=== PATIENT | female | born 1990 | race Caucasian/White ===

== ENCOUNTER 2017-05-25 09:57 | Inpatient (IN) | payer OTHER ==
[2017-05-25] MEDS ORDERED: fentaNYL 100 MCG/2 ML SDV IVPUSH PRN (11:20)
[2017-05-25] MEDS ORDERED: Ondansetron 4 MG Tab.DIS PO PRN (11:20)
[2017-05-25] MEDS ORDERED: Sodium Chloride 0.9% 10 ML Syringe FLUSH PRN (11:20)
--- NOTE | 2017-05-25 11:33 | PCM.LDHP ---
L&D History of Present Illness - General Date of Service: 05/25/17 Admit Problem/Dx: Patient Status Order with Admit Dx/Problem 05/25/17 11:21 Patient Status [ADT] Routine Admission Diagnosis/Problem Admission Diagnosis/Problem - planned Source of Information: Patient History Limitations: Reports: No Limitations - History of Present Illness Introduction:: This 27 year old G1 who is 40 4/7 weeks gestation presented with SROM at 0830 this morning. Clear fluid, was having contractions before rupture, now more regular. adequate care. GBS neg, Rubella immune, Hep b and HIV NR, ABO O pos. Positive Amnisure test here. Nursing CE 60/-2, leaking fluid Timing/Duration: Reports: minutes: (3) Location, : Reports: Abdomen, Lower back Quality: Reports: Ache Severity: Mild Improves with: Reports: None Worsens with: Reports: None - Related Data Allergies/Adverse Reactions: Allergies Allergy/AdvReac Type Severity Reaction Status Date / Time doxycycline Allergy Severe Anaphylactic Verified 12/15/14 15:48 Shock Home Medications: Home Meds Cholecalciferol (Vitamin D3) [Vitamin D] 2,000 unit PO DAILY 11/23/14 [History] Metoclopramide HCl [Reglan] 10 mg PO QIDACANDBED 12/15/14 [History] amLODIPine Besylate [Norvasc] 2.5 mg PO DAILY 12/15/14 [History] Past Medical History Other Cardiovascular History: Raynaud's disease Gastrointestinal History: Reports: Inflammatory Bowel Disease SHELVER History: Reports: : 1 Para: 0 LMP (Approximate): (05/21/17) Hematologic History: Reports: Other (See Below) Other Hematologic History: Raynaud's disease Dermatologic History: Reports: Urticaria, Other (See Below) Other Dermatologic History: acne; Raynaud's disease - Past Surgical History GI Surgical History: Reports: Appendectomy, Cholecystectomy, Hernia Repair/Other Social & Family History - Tobacco Use Smoking Status *Q: Never Smoker Second Hand Smoke Exposure: No - Caffeine Use Caffeine Use: Reports: None - Alcohol Use Days Per Week of Alcohol Use: 0 Number of Drinks Per Day: 2 Total Drinks Per Week: 0 - Recreational Drug Use Recreational Drug Use: No H&P Review of Systems - Review of Systems: Review Of Systems: See Below General: Reports: No Symptoms HEENT: Reports: No Symptoms Pulmonary: Reports: No Symptoms Cardiovascular: Reports: No Symptoms Gastrointestinal: Reports: No Symptoms Genitourinary: Reports: No Symptoms Musculoskeletal: Reports: No Symptoms Skin: Reports: No Symptoms Psychiatric: Reports: No Symptoms Neurological: Reports: No Symptoms Hematologic/Lymphatic: Reports: No Symptoms Immunologic: Reports: No Symptoms L&D Exam - Exam Exam: See Below - Vital Signs Vital Signs: Last Vital Signs Temp 98.5 F 05/25/17 11:05 Pulse 97 05/25/17 11:05 Resp 18 05/25/17 11:05 BP 86/53 L 05/25/17 11:05 Pulse Ox 97 05/25/17 11:05 Weight: 190 lb - OB Specific Contraction Duration (sec): 50 Contraction Frequency (min): 3-4 Contraction Intensity: Mild Movement: Active Heart Tones: Present Heart Tones per Min: 155 Heart Rate (FHR) Variability: Moderate (6-25 bmp) Presentation: Vertex Estimated Weight: 8 pounds - Paul Score Paul Score Consistency: Medium Paul Score Effacement: 51-70% Paul Score Dilation: 3-4 cm Paul Score 's Station: -2 - Exam General: Alert, Oriented HEENT: PERRLA, Conjunctiva Clear, EACs Clear, EOMI, Hearing Intact, Mucosa Moist & [place], Nares Patent, Normal Nasal Septum, Posterior Pharynx Clear, Pupils Equal, Pupils Reactive, TMs Clear Neck: Supple, Trachea Midline Lungs: Clear to Auscultation, Normal Respiratory Effort Cardiovascular: Regular Rate, Regular Rhythm GI/Abdominal Exam: Normal Bowel Sounds, Soft, Non-Tender, No Organomegaly, No Distention, No Abnormal Bruit, No Mass, Pelvis Stable Rectal Exam: Normal Exam Genitourinary: Normal external exam, Cervical dilitation Back Exam: Normal Inspection Extremities: Normal Inspection, Normal Range of Motion, Non-Tender, No Pedal Edema, Normal Capillary Refill Skin: Warm Neurological: Cranial Nerves Intact Psychiatric: Alert, Normal Affect, Normal Mood - Patient Data Lab Results Last 24 hrs: Laboratory Results - last 24 hr 05/25/17 Range/Units 10:04 Membrane Rupture Positive H (NEGATIVE) - Problem List (1) SROM (spontaneous rupture of membranes) SNOMED Code(s): 909379277 ICD Code: [id number] - Status: Acute Current Visit: Yes (2) SNOMED Code(s): 25258090 ICD Code: Z34.90 - ENCNTR FOR SUPRVSN OF NORMAL , UNSP, UNSP TRIMESTER Status: Acute Current Visit: Yes Qualifiers: Weeks of gestation: 40 weeks Qualified Code(s): Z3A.40 - 40 weeks gestation of Problem List Initiated/Reviewed/Updated: Yes Orders Last 24hrs: Active Orders 24 hr Category Date Time Status Patient Status [ADT] Routine ADT 05/25/17 11:21 Ordered Antiembolic Devices [RC] .Routine Care 05/25/17 11:23 Ordered Bedrest Bathroom Privileges [RC] ASDIRECTED Care 05/25/17 11:20 Ordered Communication Order [RC] ASDIRECTED Care 05/25/17 11:21 Ordered Heart Tones [RC] PER UNIT ROUTINE Care 05/25/17 11:21 Ordered May Shower [RC] ASDIRECTED Care 05/25/17 11:20 Ordered Notify Provider Vital Signs [RC] PRN Care 05/25/17 11:20 Ordered Notify Provider [RC] PRN Care 05/25/17 11:21 Ordered Up ad Shiela [RC] ASDIRECTED Care 05/25/17 11:20 Ordered VTE/DVT Education [RC] Click to Edit Care 05/25/17 11:23 Ordered Vital Signs [RC] PER UNIT ROUTINE Care 05/25/17 11:21 Ordered CBC W/O DIFF,HEMOGRAM [HEME] Routine Lab 05/25/17 11:20 Ordered DRUG SCREEN, URINE [URCHEM] Routine Lab 05/25/17 10:04 Ordered UA W/MICROSCOPIC [URIN] Routine Lab 05/25/17 10:05 Ordered Acetaminophen [Tylenol] Med 05/25/17 11:20 Ordered 650 mg PO Q4H PRN Ondansetron [Zofran ODT] Med 05/25/17 11:20 Ordered 4 mg PO Q4H PRN Oxytocin/Normal Saline [Pitocin in NS 20 Units/1,000 ML Med 05/25/17 11:30 Ordered ] 1,000 ml IV TITRATE Sodium Chloride 0.9% [Saline Flush] Med 05/25/17 11:20 Ordered 10 ml FLUSH ASDIRECTED PRN fentaNYL [Sublimaze] Med 05/25/17 11:20 Ordered 100 mcg IVPUSH Q1H PRN DVT/VTE Prophylaxis Reflex [OM.PC] Routine Oth 05/25/17 11:20 Ordered Saline Lock Insert [OM.PC] Routine Oth 05/25/17 11:21 Ordered Resuscitation Status Routine Resus Stat 05/25/17 11:20 Ordered Medication Orders Acetaminophen (Tylenol) 650 mg PO Q4H PRN PRN Reason: Pain (Mild 1-3) and fever Fentanyl (Sublimaze) 100 mcg IVPUSH Q1H PRN PRN Reason: Pain (moderate 4-6) Oxytocin/Sodium Chloride (Pitocin In Ns 20 Units/1,000 Ml) 1,000 mls @ 6 mls/ hr IV TITRATE BHUPENDRA; 2 MUNITS/MIN PRN Reason: Protocol Ondansetron HCl (Zofran Odt) 4 mg PO Q4H PRN PRN Reason: Nausea/Vomiting Sodium Chloride (Saline Flush) 10 ml FLUSH ASDIRECTED PRN PRN Reason: Keep Vein Open Assessment/Plan Comment:: 05/25/17 40 4/7 weeks gestation g1 SROM at home Baseline FHT 155 Cat one strip CE 60/-2, leaking Not uncomfortable yet, wants to walk, and be in tub for now. Plan for vaginal delivery later.
[2017-05-25] MEDS: Lactated Ringers 1,000 ML IV SCH ×2 (15:27→17:13)
--- NOTE | 2017-05-25 16:43 | PCM.PNLD ---
Labor Progress Note - VS & Meds Vital Signs: Last Vital Signs Temp 97.9 F 05/25/17 14:35 Pulse 91 05/25/17 14:35 Resp 18 05/25/17 14:35 BP 102/80 05/25/17 14:35 Pulse Ox 98 05/25/17 14:35 Active Medications: Current Medications Acetaminophen (Tylenol) 650 mg PO Q4H PRN PRN Reason: Pain (Mild 1-3) and fever Fentanyl (Sublimaze) 100 mcg IVPUSH Q1H PRN PRN Reason: Pain (moderate 4-6) Oxytocin/Sodium Chloride (Pitocin In Ns 20 Units/1,000 Ml) 20 unit in 1,000 mls @ 6 mls/hr IV TITRATE BHUPENDRA; 2 MUNITS/MIN PRN Reason: Protocol Last Titration: 05/25/17 16:10 Dose: 6 munits/min, 18 mls/hr Lactated Ringer's (Ringers, Lactated) 1,000 mls @ 125 mls/hr IV ASDIRECTED BHUPENDRA Last Admin: 05/25/17 15:27 Dose: 125 mls/hr Ondansetron HCl (Zofran Odt) 4 mg PO Q4H PRN PRN Reason: Nausea/Vomiting Sodium Chloride (Saline Flush) 10 ml FLUSH ASDIRECTED PRN PRN Reason: Keep Vein Open - Uterine Contractions Uterine Monitoring Mode: External [place] Contraction Frequency (min): 2-5 Contraction Duration (sec): 40-80 Contraction Intensity: Moderate Uterine Resting Tone: Soft - Monitoring Monitor Mode: Doppler/Auscultation Heart Rate (FHR) Baseline: 155 Heart Rate (FHR) Variability: Moderate (6-25 bmp) - Vaginal Exam Dilation (cm): 4 Effacement (Percent): 60 Station: [place] Cervical Position: Posterior Sterile Vaginal Exam Performed By: Tamela Lugo - Labor Progress (Free Text) Labor Progress: Augmented with pitocin as contractions were not causing cervical change. Now more uncomfortable and requesting an epidural for pain management. Planning vaginal delivery
[2017-05-25] MEDS ORDERED: ePHEDrine 50 MG/ML SDV ONE (17:22)
[2017-05-25] MEDS ORDERED: Ropivacaine 100 ML ONE (17:36)
[2017-05-25] MEDS ORDERED: ePHEDrine 50 MG/ML SDV IVPUSH PRN (18:06)
[2017-05-25] MEDS ORDERED: Naloxone 0.4 MG/ML SDV IVPUSH PRN (18:06)
[2017-05-25] MEDS ORDERED: Ropivacaine 100 ML EPIDUR SCH (18:30)
[2017-05-25] MEDS ORDERED: Lidocaine 1% 50 ML MDV ONE (18:46)
[2017-05-25] MEDS ORDERED: Oxytocin 10 Units/1 ML SDV ONE (18:46)
--- NOTE | 2017-05-25 18:56 | PCM.PNLD ---
Labor Progress Note - VS & Meds Vital Signs: Last Vital Signs Temp 97.7 F 05/25/17 17:34 Pulse 99 05/25/17 18:10 Resp 18 05/25/17 17:34 BP 108/50 L 05/25/17 18:10 Pulse Ox 99 05/25/17 17:34 Active Medications: Current Medications Acetaminophen (Tylenol) 650 mg PO Q4H PRN PRN Reason: Pain (Mild 1-3) and fever Ephedrine Sulfate (Ephedrine Sulfate) 5 - 10 mg IVPUSH ASDIRECTED PRN PRN Reason: IF SYSTOLIC BP LESS THAN 100 Fentanyl (Sublimaze) 100 mcg IVPUSH Q1H PRN PRN Reason: Pain (moderate 4-6) Oxytocin/Sodium Chloride (Pitocin In Ns 20 Units/1,000 Ml) 20 unit in 1,000 mls @ 6 mls/hr IV TITRATE BHUPENDRA; 2 MUNITS/MIN PRN Reason: Protocol Last Titration: 05/25/17 16:10 Dose: 6 munits/min, 18 mls/hr Lactated Ringer's (Ringers, Lactated) 1,000 mls @ 125 mls/hr IV ASDIRECTED BHUPENDRA Last Admin: 05/25/17 17:13 Dose: 125 mls/hr Ropivacaine (Naropin 0.2%) 100 mls @ 12 mls/hr EPIDUR ASDIRECTED BHUPENDRA Naloxone HCl (Narcan) 0.1 mg IVPUSH Q5M PRN PRN Reason: IF RESP RATE LESS THAN 6 Ondansetron HCl (Zofran Odt) 4 mg PO Q4H PRN PRN Reason: Nausea/Vomiting Last Admin: 05/25/17 17:12 Dose: 4 mg Sodium Chloride (Saline Flush) 10 ml FLUSH ASDIRECTED PRN PRN Reason: Keep Vein Open Discontinued Medications Ephedrine Sulfate (Ephedrine Sulfate) Confirm Administered Dose 50 mg .ROUTE .STK-MED ONE Stop: 05/25/17 17:23 Ropivacaine (Naropin 0.2%) Confirm Administered Dose 100 mls @ as directed .ROUTE .STK-MED ONE Stop: 05/25/17 17:37 Lidocaine HCl (Xylocaine 1%) Confirm Administered Dose 100 ml .ROUTE .STK-MED ONE Stop: 05/25/17 18:47 Oxytocin (Pitocin) Confirm Administered Dose 10 unit .ROUTE .STK-MED ONE Stop: 05/25/17 18:47 - Uterine Contractions Uterine Monitoring Mode: External [place] Contraction Frequency (min): 1.5-4 Contraction Duration (sec): 50-60 Contraction Intensity: Strong Uterine Resting Tone: Soft - Monitoring Monitor Mode: Doppler/Auscultation Heart Rate (FHR) Baseline: 155 Heart Rate (FHR) Variability: Moderate (6-25 bmp) Accelerations: Present, 15x15 Decelerations: Early Strip Review: Category I - Vaginal Exam Dilation (cm): 9.5 Effacement (Percent): 100 Station: 2 Cervical Position: Anterior Sterile Vaginal Exam Performed By: Saundra Valdez - Labor Progress (Free Text) Labor Progress: Excellent progression, anterior lip. FHT 155 Cat one strip. Will start pushing soon. epidural working well
[2017-05-25] MEDS ORDERED: Lanolin 100% Cream 40 GM Tube TOP PRN (20:32)
[2017-05-25] MEDS ORDERED: Witch Hazel Medicated Pads 100/Jar TOP PRN (20:32)
[2017-05-25] MEDS ORDERED: Benzocaine 20% Top Spray 56 GM Bottle TOP PRN (20:32)
[2017-05-25] MEDS ORDERED: Ibuprofen 600 MG Tab ONE (20:37)
[2017-05-25] MEDS: Ibuprofen 600 MG Tab PO PRN (20:40)
--- NOTE | 2017-05-25 20:42 | PCM.DEL ---
L & D Note - General Info Date of Service: 05/25/17 (delivery) Mother's Due Date: 05/21/17 - Delivery Note Labor: Spontaneous Delivery Outcome: Livebirth Infant Delivery Method: Spontaneous Vaginal Delivery-Single Infant Delivery Mode: Spontaneous Presentation: Vertex Nuchal Cord: None Anesthesia Type: Epidural Amniotic Fluid Description: Clear Episiotomy Type: None Laceration: 1st Degree, 2nd Degree, Labial, Perineal Suture type: Vicryl Suture size: 3-0 Placenta: Intact, Spontaneous, Expressed Cord: 3 Vessels Estimated Blood Loss: 400 Resuscitation Needed: No [place]: Stimulated, Warmed, [place] Used Provider: Saundra Valdez Score 1 min: 8 Score 5 min: 9 Score 10 min: 10 Second Stage Interventions: Reports: Second Nurse Reviewed Contraction Pattern, Encouragement Given, Pushing Effectively, Pushing, McRobert's Position Delivery Comments (Free Text/Narrative):: This 27 year old G1 now P1 40 4/7 weeks gestation delivered via at 1940 in SARWAT position a viable female infant. Mother pushed effectively and baby was placed on abdomen were she cried spontaneously. She was dried and stimulated had a three vessel cord. Apgars of 8,9,10. . The placenta was expressed spontaneously intact, adama. active management of the third stage was used. There was a first degree right labia tear which was repaired. with 3-0 vicryl with a running stitch. She also had a second degree perineal tear which was repaired first with a locking blanket stitch, then a few deeps and finally closed with interrupted stitches. Hemostasis was achieved. No cervical tears or tears of the rectum were found. EBL 400cc Mother and baby to post and nursery in stable condition. weight 7-7 First stage 9751-5649 Second stage 4872-2081 third stage 1499-4302 Induction Criteria - Paul Score Paul Score Dilation: 3-4 cm Paul Score Effacement: 60-70% Paul Score Infant's Station: -1 ,0 Paul Score Consistency: Soft Paul Score Cervix Position: Posterior Paul Score Total: 8 Paul Score Presenting Part: Reports: Cephalic - Augmentation Estimated Pelvis: Reports: Adequate Weight Estimated:: Reports: AGA Reassuring Monitoring Strip: Yes Absence of Tachy Systole: Yes - General Info Date of Service: 05/25/17 Admission Dx/Problem (Free Text): Patient Status Order with Admit Dx/Problem 05/25/17 11:21 Patient Status [ADT] Routine Admission Diagnosis/Problem Admission Diagnosis/Problem - planned Functional Status: Reports: Pain Controlled - Review of Systems General: Reports: No Symptoms HEENT: Reports: No Symptoms Pulmonary: Reports: No Symptoms Cardiovascular: Reports: No Symptoms Gastrointestinal: Reports: No Symptoms Genitourinary: Reports: No Symptoms Musculoskeletal: Reports: No Symptoms Skin: Reports: No Symptoms Neurological: Reports: No Symptoms Psychiatric: Reports: No Symptoms - Patient Data Vitals - Most Recent: Last Vital Signs Temp 97.7 F 05/25/17 17:34 Pulse 99 05/25/17 18:10 Resp 18 05/25/17 17:34 BP 108/50 L 05/25/17 18:10 Pulse Ox 99 05/25/17 17:34 Weight - Most Recent: 190 lb Lab Results Last 24 Hours: Laboratory Results - last 24 hr 05/25/17 05/25/17 05/25/17 Range/Units 10:04 10:05 10:05 WBC (4.5-11.0) K/uL RBC (3.30-5.50) M/uL Hgb (12.0-15.0) g/dL Hct (36.0-48.0) % MCV (80-98) fL MCH (27-31) pg MCHC (32-36) % Plt Count (150-400) K/uL Urine Color Yellow Urine Appearance Cloudy Urine pH 7.0 (4.5-8.0) Ur Specific [place] 1.005 L (1.008-1.030) Urine Protein Negative (NEGATIVE) mg/dL Urine Glucose (UA) Normal (NEGATIVE) mg/dL Urine Ketones Negative (NEGATIVE) mg/dL Urine Occult Blood Large (NEGATIVE) Urine Nitrite Negative (NEGATIVE) Urine Bilirubin Negative (NEGATIVE) Urine Urobilinogen Normal (NORMAL) mg/dL Ur Leukocyte Esterase Large (NEGATIVE) Urine RBC 75-100 H (0-5) Urine WBC 75-100 H (0-5) Ur Epithelial Cells Moderate Amorphous Sediment Few Urine Bacteria Few Urine Mucus Numerous Membrane Rupture Positive H (NEGATIVE) Urine Opiates Screen Negative (NEGATIVE) Ur Oxycodone Screen Negative (NEGATIVE) Urine Methadone Screen Negative (NEGATIVE) Ur Propoxyphene Screen Negative (NEGATIVE) Ur Barbiturates Screen Negative (NEGATIVE) Ur Tricyclics Screen Negative (NEGATIVE) Ur Phencyclidine Scrn Negative (NEGATIVE) Ur Amphetamine Screen Negative (NEGATIVE) U Methamphetamines Scrn Negative (NEGATIVE) Urine MDMA Screen Negative (NEGATIVE) U Benzodiazepines Scrn Negative (NEGATIVE) U Cocaine Metab Screen Negative (NEGATIVE) U Marijuana (THC) Screen Negative (NEGATIVE) 05/25/17 Range/Units 11:37 WBC 17.4 H (4.5-11.0) K/uL RBC 3.88 (3.30-5.50) M/uL Hgb 11.1 L (12.0-15.0) g/dL Hct 34.8 L (36.0-48.0) % MCV 90 (80-98) fL MCH 29 (27-31) pg MCHC 32 (32-36) % Plt Count 354 (150-400) K/uL Urine Color Urine Appearance Urine pH (4.5-8.0) Ur Specific [place] (1.008-1.030) Urine Protein (NEGATIVE) mg/dL Urine Glucose (UA) (NEGATIVE) mg/dL Urine Ketones (NEGATIVE) mg/dL Urine Occult Blood (NEGATIVE) Urine Nitrite (NEGATIVE) Urine Bilirubin (NEGATIVE) Urine Urobilinogen (NORMAL) mg/dL Ur Leukocyte Esterase (NEGATIVE) Urine RBC (0-5) Urine WBC (0-5) Ur Epithelial Cells Amorphous Sediment Urine Bacteria Urine Mucus Membrane Rupture (NEGATIVE) Urine Opiates Screen (NEGATIVE) Ur Oxycodone Screen (NEGATIVE) Urine Methadone Screen (NEGATIVE) Ur Propoxyphene Screen (NEGATIVE) Ur Barbiturates Screen (NEGATIVE) Ur Tricyclics Screen (NEGATIVE) Ur Phencyclidine Scrn (NEGATIVE) Ur Amphetamine Screen (NEGATIVE) U Methamphetamines Scrn (NEGATIVE) Urine MDMA Screen (NEGATIVE) U Benzodiazepines Scrn (NEGATIVE) U Cocaine Metab Screen (NEGATIVE) U Marijuana (THC) Screen (NEGATIVE) Med Orders - Current: Current Medications Acetaminophen (Tylenol) 650 mg PO Q4H PRN PRN Reason: Pain (Mild 1-3) and fever Ephedrine Sulfate (Ephedrine Sulfate) 5 - 10 mg IVPUSH ASDIRECTED PRN PRN Reason: IF SYSTOLIC BP LESS THAN 100 Fentanyl (Sublimaze) 100 mcg IVPUSH Q1H PRN PRN Reason: Pain (moderate 4-6) Oxytocin/Sodium Chloride (Pitocin In Ns 20 Units/1,000 Ml) 20 unit in 1,000 mls @ 6 mls/hr IV TITRATE BHUPENDRA; 2 MUNITS/MIN PRN Reason: Protocol Last Titration: 05/25/17 16:10 Dose: 6 munits/min, 18 mls/hr Lactated Ringer's (Ringers, Lactated) 1,000 mls @ 125 mls/hr IV ASDIRECTED BHUPENDRA Last Admin: 05/25/17 17:13 Dose: 125 mls/hr Ropivacaine (Naropin 0.2%) 100 mls @ 12 mls/hr EPIDUR ASDIRECTED BHUPENDRA Naloxone HCl (Narcan) 0.1 mg IVPUSH Q5M PRN PRN Reason: IF RESP RATE LESS THAN 6 Ondansetron HCl (Zofran Odt) 4 mg PO Q4H PRN PRN Reason: Nausea/Vomiting Last Admin: 05/25/17 17:12 Dose: 4 mg Sodium Chloride (Saline Flush) 10 ml FLUSH ASDIRECTED PRN PRN Reason: Keep Vein Open Discontinued Medications Ephedrine Sulfate (Ephedrine Sulfate) Confirm Administered Dose 50 mg .ROUTE .STK-MED ONE Stop: 05/25/17 17:23 Ropivacaine (Naropin 0.2%) Confirm Administered Dose 100 mls @ as directed .ROUTE .STK-MED ONE Stop: 05/25/17 17:37 Lidocaine HCl (Xylocaine 1%) Confirm Administered Dose 100 ml .ROUTE .STK-MED ONE Stop: 05/25/17 18:47 Oxytocin (Pitocin) Confirm Administered Dose 10 unit .ROUTE .STK-MED ONE Stop: 05/25/17 18:47 - Exam General: Alert, Oriented HEENT: Pupils Equal Neck: Supple Lungs: Clear to Auscultation Cardiovascular: Regular Rate, Regular Rhythm GI/Abdominal Exam: Soft, Non-Tender (Female) Exam: Normal External Exam, Enlarged Uterus, Vaginal Bleeding, Vaginal Tears Back Exam: Normal Inspection Extremities: Normal Inspection, No Pedal Edema, Normal Capillary Refill Skin: Warm, Dry, Intact Neurological: No New Focal Deficit Psy/Mental Status: Alert, Normal Affect, Normal Mood - Problem List & Annotations (1) SROM (spontaneous rupture of membranes) SNOMED Code(s): 333229279 Code(s): NZQ3654 - Status: Acute Current Visit: Yes (2) SNOMED Code(s): 50074702 Code(s): Z34.90 - ENCNTR FOR SUPRVSN OF NORMAL , UNSP, UNSP TRIMESTER Status: Acute Current Visit: Yes Qualifiers: Weeks of gestation: 40 weeks Qualified Code(s): Z3A.40 - 40 weeks gestation of (3) Vaginal delivery SNOMED Code(s): 391524560 Code(s): O80 - ENCOUNTER FOR FULL-TERM UNCOMPLICATED DELIVERY Status: Acute Current Visit: Yes (4) Vaginal tear resulting from childbirth SNOMED Code(s): 626894155 Code(s): O71.4 - OBSTETRIC HIGH VAGINAL LACERATION ALONE Status: Acute Current Visit: Yes - Problem List Review Problem List Initiated/Reviewed/Updated: Yes - My Orders Last 24 Hours: My Active Orders 05/25/17 11:20 Bedrest Bathroom Privileges [RC] ASDIRECTED May Shower [RC] ASDIRECTED Notify Provider Vital Signs [RC] PRN Up ad Shiela [RC] ASDIRECTED Acetaminophen [Tylenol] 650 mg PO Q4H PRN Ondansetron [Zofran ODT] 4 mg PO Q4H PRN Sodium Chloride 0.9% [Saline Flush] 10 ml FLUSH ASDIRECTED PRN fentaNYL [Sublimaze] 100 mcg IVPUSH Q1H PRN DVT/VTE Prophylaxis Reflex [OM.PC] Routine Resuscitation Status Routine 05/25/17 11:21 Communication Order [RC] ASDIRECTED Heart Tones [RC] PER UNIT ROUTINE Notify Provider [RC] PRN Vital Signs [RC] PER UNIT ROUTINE Saline Lock Insert [OM.PC] Routine 05/25/17 11:23 Antiembolic Devices [RC] .Routine VTE/DVT Education [RC] Click to Edit 05/25/17 11:30 Oxytocin/Normal Saline [Pitocin in NS 20 Units/1,000 ML] 20 unit in 1,000 ml IV TITRATE 05/25/17 15:15 Lactated Ringers [Ringers, Lactated] 1,000 ml IV ASDIRECTED 05/25/17 18:06 Naloxone [Narcan] 0.1 mg IVPUSH Q5M PRN ePHEDrine [ePHEDrine Sulfate] 5 - 10 mg IVPUSH ASDIRECTED PRN 05/25/17 18:30 Ropivacaine [Naropin 0.2%] 100 ml EPIDUR ASDIRECTED 05/25/17 20:32 Patient Status [ADT] Routine Vital Signs [RC] PFP Benzocaine [Uuev-V-Tfanuvq 20% [place]] See Dose Instructions TOP Q4H PRN Ibuprofen [Motrin] 600 mg PO Q6H PRN Lanolin [Lansinoh HPA] 1 gm TOP ASDIRECTED PRN Witch Yamilet [Tucks] 1 pad TOP ASDIRECTED PRN Assess Lochia [WOMSER] Per Unit Routine Assess Uterine Involution [WOMSER] Per Unit Routine 05/25/17 20:34 Ice Therapy [OM.PC] Per Unit Routine Perineal Care [OM.PC] Per Unit Routine Peripheral IV Discontinue [OM.PC] Routine Sitz Bath [OM.PC] Per Unit Routine 05/25/17 21:00 Docusate Sodium [Colace] 100 mg PO BID 05/25/17 Breakfast Regular Diet [DIET] 05/26/17 05:11 CBC WITH AUTO DIFF [HEME] AM - Assessment Assessment:: 27 year old G1 now P1 40 4/7 weeks delivered with second degree tear with repair, other other complications Labs HGB 11.1, PLT 354, HIV neg, ABO O pos, Rubella immune, GBS neg, Hep B neg - Plan Plan:: 05/25/17 40 4/7 weeks gestation g1 SROM at home Baseline FHT 155 Cat one strip CE 360/-2, leaking Not uncomfortable yet, wants to walk, and be in tub for now. Plan for vaginal delivery later. 05-25-17 Routine cares ice to bottom and stool softeners CBC in am Support 24-48 hour stay
[2017-05-25] MEDS: Acetaminophen 325 MG Tab PO PRN (23:03)
[2017-05-25] MEDS: Docusate Sodium 100 MG Cap PO SCH (23:04)
--- NOTE | 2017-05-25 23:44 | ANES ---
DATE OF SERVICE: 05/25/2017 A 27-year-old lady in the Obstetrical Department, term and active labor. I was asked by Edie Valdez to provide labor epidural. She has had her bolus. The procedure was explained to her in detail, all questions were answered. Consent was signed. She was placed in a sitting position. After a Betadine solution prep, the epidural was accomplished x1 at what I feel is L4-L5 with a good feel. No paresthesia. No CSF. No blood. Lidocaine 1%, 5 mL with epinephrine 1:200,000 was injected through the epidural needle. The epidural catheter was then passed easily to the four aminata. The needle was removed, catheter was taped in place. She was placed supine with her head up about 15 degrees and was given a bolus of ropivacaine 0.2%, 15 mL over approximately 2 minutes. She was then hooked up to a continuous infusion of ropivacaine 0.2% running at 12 mL/h. She tolerated the procedure well. At the end of 12 minutes, her both feet were getting warm. The contractions, though she still had to breathe with them, were more tolerable for her, and she is, I believe, on Pitocin. Beau Gordon CRNA /[id number]
[2017-05-26] MEDS: Ibuprofen 600 MG Tab PO PRN ×3 (02:20→14:18)
[2017-05-26] MEDS: Acetaminophen 325 MG Tab PO PRN ×4 (03:16→16:10)
--- NOTE | 2017-05-26 08:07 | PCM.PNPP ---
- General Info Date of Service: 05/26/17 Admission Dx/Problem (Free Text): Patient Status Order with Admit Dx/Problem 05/25/17 11:21 Patient Status [ADT] Routine Admission Diagnosis/Problem Admission Diagnosis/Problem - planned Functional Status: Reports: Pain Controlled - Review of Systems General: Reports: No Symptoms HEENT: Reports: No Symptoms Pulmonary: Reports: No Symptoms Cardiovascular: Reports: No Symptoms Gastrointestinal: Reports: No Symptoms Genitourinary: Reports: No Symptoms Musculoskeletal: Reports: No Symptoms Skin: Reports: No Symptoms Neurological: Reports: No Symptoms Psychiatric: Reports: No Symptoms - General Info Date of Service: 05/26/17 - Patient Data Vital Signs - Most Recent: Last Vital Signs Temp 97.0 F 05/26/17 07:25 Pulse 90 05/26/17 03:11 Resp 18 05/26/17 07:25 BP 103/57 L 05/26/17 07:25 Pulse Ox 98 05/26/17 07:25 Weight - Most Recent: 190 lb I&O - Last 24 Hours: Intake & Output 05/25/17 05/26/17 05/26/17 22:59 06:59 14:59 Intake Total 500 Balance 500 Lab Results - Last 24 Hours: Laboratory Results - last 24 hr 05/25/17 05/25/17 05/25/17 Range/Units 10:04 10:05 10:05 WBC (4.5-11.0) K/uL RBC (3.30-5.50) M/uL Hgb (12.0-15.0) g/dL Hct (36.0-48.0) % MCV (80-98) fL MCH (27-31) pg MCHC (32-36) % Plt Count (150-400) K/uL Neut % (Auto) (36-66) % Lymph % (Auto) (24-44) % [place] % (Auto) (2-6) % Eos % (Auto) (2-4) % Baso % (Auto) (0-1) % Urine Color Yellow Urine Appearance Cloudy Urine pH 7.0 (4.5-8.0) Ur Specific [place] 1.005 L (1.008-1.030) Urine Protein Negative (NEGATIVE) mg/dL Urine Glucose (UA) Normal (NEGATIVE) mg/dL Urine Ketones Negative (NEGATIVE) mg/dL Urine Occult Blood Large (NEGATIVE) Urine Nitrite Negative (NEGATIVE) Urine Bilirubin Negative (NEGATIVE) Urine Urobilinogen Normal (NORMAL) mg/dL Ur Leukocyte Esterase Large (NEGATIVE) Urine RBC 75-100 H (0-5) Urine WBC 75-100 H (0-5) Ur Epithelial Cells Moderate Amorphous Sediment Few Urine Bacteria Few Urine Mucus Numerous Membrane Rupture Positive H (NEGATIVE) Urine Opiates Screen Negative (NEGATIVE) Ur Oxycodone Screen Negative (NEGATIVE) Urine Methadone Screen Negative (NEGATIVE) Ur Propoxyphene Screen Negative (NEGATIVE) Ur Barbiturates Screen Negative (NEGATIVE) Ur Tricyclics Screen Negative (NEGATIVE) Ur Phencyclidine Scrn Negative (NEGATIVE) Ur Amphetamine Screen Negative (NEGATIVE) U Methamphetamines Scrn Negative (NEGATIVE) Urine MDMA Screen Negative (NEGATIVE) U Benzodiazepines Scrn Negative (NEGATIVE) U Cocaine Metab Screen Negative (NEGATIVE) U Marijuana (THC) Screen Negative (NEGATIVE) 05/25/17 05/26/17 Range/Units 11:37 05:43 WBC 17.4 H 20.4 H (4.5-11.0) K/uL RBC 3.88 3.21 L (3.30-5.50) M/uL Hgb 11.1 L 9.4 L (12.0-15.0) g/dL Hct 34.8 L 29.0 L (36.0-48.0) % MCV 90 90 (80-98) fL MCH 29 29 (27-31) pg MCHC 32 32 (32-36) % Plt Count 354 317 (150-400) K/uL Neut % (Auto) 83 H (36-66) % Lymph % (Auto) 11 L (24-44) % [place] % (Auto) 6 (2-6) % Eos % (Auto) 1 L (2-4) % Baso % (Auto) 0 (0-1) % Urine Color Urine Appearance Urine pH (4.5-8.0) Ur Specific [place] (1.008-1.030) Urine Protein (NEGATIVE) mg/dL Urine Glucose (UA) (NEGATIVE) mg/dL Urine Ketones (NEGATIVE) mg/dL Urine Occult Blood (NEGATIVE) Urine Nitrite (NEGATIVE) Urine Bilirubin (NEGATIVE) Urine Urobilinogen (NORMAL) mg/dL Ur Leukocyte Esterase (NEGATIVE) Urine RBC (0-5) Urine WBC (0-5) Ur Epithelial Cells Amorphous Sediment Urine Bacteria Urine Mucus Membrane Rupture (NEGATIVE) Urine Opiates Screen (NEGATIVE) Ur Oxycodone Screen (NEGATIVE) Urine Methadone Screen (NEGATIVE) Ur Propoxyphene Screen (NEGATIVE) Ur Barbiturates Screen (NEGATIVE) Ur Tricyclics Screen (NEGATIVE) Ur Phencyclidine Scrn (NEGATIVE) Ur Amphetamine Screen (NEGATIVE) U Methamphetamines Scrn (NEGATIVE) Urine MDMA Screen (NEGATIVE) U Benzodiazepines Scrn (NEGATIVE) U Cocaine Metab Screen (NEGATIVE) U Marijuana (THC) Screen (NEGATIVE) Med Orders - Current: Current Medications Acetaminophen (Tylenol) 650 mg PO Q4H PRN PRN Reason: Pain (Mild 1-3) and fever Last Admin: 05/26/17 07:30 Dose: 650 mg Benzocaine (Dppc-A-Iynejcn 20% [place]) 0 gm TOP Q4H PRN PRN Reason: Perineal Comfort Measure Docusate Sodium (Colace) 100 mg PO BID BHUPENDRA Last Admin: 05/25/17 23:04 Dose: 100 mg Emollient Ointment (Lansinoh Hpa) 1 gm TOP ASDIRECTED PRN PRN Reason: Sore Nipples Ibuprofen (Motrin) 600 mg PO Q6H PRN PRN Reason: mild pain or fever Last Admin: 05/26/17 02:20 Dose: 600 mg Ondansetron HCl (Zofran Odt) 4 mg PO Q4H PRN PRN Reason: Nausea/Vomiting Last Admin: 05/25/17 17:12 Dose: 4 mg Sodium Chloride (Saline Flush) 10 ml FLUSH ASDIRECTED PRN PRN Reason: Keep Vein Open Witmarilee Woodard (Tucks) 1 pad TOP ASDIRECTED PRN PRN Reason: Hemorrhoids Discontinued Medications Ephedrine Sulfate (Ephedrine Sulfate) Confirm Administered Dose 50 mg .ROUTE .STK-MED ONE Stop: 05/25/17 17:23 Last Admin: 05/25/17 23:04 Dose: Not Given Ephedrine Sulfate (Ephedrine Sulfate) 5 - 10 mg IVPUSH ASDIRECTED PRN PRN Reason: IF SYSTOLIC BP LESS THAN 100 Fentanyl (Sublimaze) 100 mcg IVPUSH Q1H PRN PRN Reason: Pain (moderate 4-6) Oxytocin/Sodium Chloride (Pitocin In Ns 20 Units/1,000 Ml) 20 unit in 1,000 mls @ 6 mls/hr IV TITRATE BHUPENDRA; 2 MUNITS/MIN PRN Reason: Protocol Last Titration: 05/25/17 20:20 Dose: 125 mls/hr Lactated Ringer's (Ringers, Lactated) 1,000 mls @ 125 mls/hr IV ASDIRECTED BHUPENDRA Last Admin: 05/25/17 17:13 Dose: 125 mls/hr Ropivacaine (Naropin 0.2%) Confirm Administered Dose 100 mls @ as directed .ROUTE .STK-MED ONE Stop: 05/25/17 17:37 Ropivacaine (Naropin 0.2%) 100 mls @ 12 mls/hr EPIDUR ASDIRECTED BHUPENDRA Ibuprofen (Motrin) Confirm Administered Dose 600 mg .ROUTE .STK-MED ONE Stop: 05/25/17 20:38 Last Admin: 05/25/17 23:05 Dose: Not Given Lidocaine HCl (Xylocaine 1%) Confirm Administered Dose 100 ml .ROUTE .STK-MED ONE Stop: 05/25/17 18:47 Last Admin: 05/25/17 23:05 Dose: Not Given Naloxone HCl (Narcan) 0.1 mg IVPUSH Q5M PRN PRN Reason: IF RESP RATE LESS THAN 6 Oxytocin (Pitocin) Confirm Administered Dose 10 unit .ROUTE .STK-MED ONE Stop: 05/25/17 18:47 Last Admin: 05/25/17 23:05 Dose: Not Given - Interaction Infant Disposition, : [place] in Room with Family Interaction: Other (see below) (baby with her in crib) Infant Feeding: Breastfed ; Nursed Well Support Person: - Recovery Exam Fundal Tone: Firm Fundal Level: 1 Fingerbreadths Below Umbilicus Fundal Placement: Midline Lochia Amount: Small Lochia Color: Rubra/Red Perineum Description: Intact, Minimal Bruising/Swelling, Edematous (repair intact, on digital exam no hematoma) Episiotomy/Laceration: Approximated Bladder Status: Voiding Urinary Elimination: Voided - Exam General: Alert (happy), Oriented HEENT: Pupils Reactive Lungs: Normal Respiratory Effort Cardiovascular: Regular Rate, Regular Rhythm GI/Abdominal Exam: Soft Extremities: Normal Inspection, Normal Capillary Refill Skin: Warm, Dry, Intact Wound/Incisions: Healing Well Neurological: No New Focal Deficit Psy/Mental Status: Alert, Normal Affect, Normal Mood - Problem List & Annotations (1) SROM (spontaneous rupture of membranes) SNOMED Code(s): 507914463 Code(s): GRV7896 - Status: Acute Current Visit: Yes (2) SNOMED Code(s): 81127953 Code(s): Z34.90 - ENCNTR FOR SUPRVSN OF NORMAL , UNSP, UNSP TRIMESTER Status: Acute Current Visit: Yes Qualifiers: Weeks of gestation: 40 weeks Qualified Code(s): Z3A.40 - 40 weeks gestation of (3) Vaginal delivery SNOMED Code(s): 371954626 Code(s): O80 - ENCOUNTER FOR FULL-TERM UNCOMPLICATED DELIVERY Status: Acute Current Visit: Yes (4) Vaginal tear resulting from childbirth SNOMED Code(s): 092760739 Code(s): O71.4 - OBSTETRIC HIGH VAGINAL LACERATION ALONE Status: Acute Current Visit: Yes - Problem List Review Problem List Initiated/Reviewed/Updated: Yes - My Orders Last 24 Hours: My Active Orders 05/25/17 11:20 May Shower [RC] ASDIRECTED Notify Provider Vital Signs [RC] PRN Up ad Shiela [RC] ASDIRECTED Acetaminophen [Tylenol] 650 mg PO Q4H PRN Ondansetron [Zofran ODT] 4 mg PO Q4H PRN Sodium Chloride 0.9% [Saline Flush] 10 ml FLUSH ASDIRECTED PRN DVT/VTE Prophylaxis Reflex [OM.PC] Routine Resuscitation Status Routine 05/25/17 11:21 Notify Provider [RC] PRN Vital Signs [RC] PER UNIT ROUTINE Saline Lock Insert [OM.PC] Routine 05/25/17 11:23 Antiembolic Devices [RC] .Routine VTE/DVT Education [RC] Click to Edit 05/25/17 20:32 Patient Status [ADT] Routine Benzocaine [Yfrs-I-Udsbhjv 20% [place]] See Dose Instructions TOP Q4H PRN Ibuprofen [Motrin] 600 mg PO Q6H PRN Lanolin [Lansinoh HPA] 1 gm TOP ASDIRECTED PRN Witch Yamilet [Tucks] 1 pad TOP ASDIRECTED PRN Assess Lochia [WOMSER] Per Unit Routine Assess Uterine Involution [WOMSER] Per Unit Routine 05/25/17 20:34 Ice Therapy [OM.PC] Per Unit Routine Perineal Care [OM.PC] Per Unit Routine Peripheral IV Discontinue [OM.PC] Routine Sitz Bath [OM.PC] Per Unit Routine 05/25/17 21:00 Docusate Sodium [Colace] 100 mg PO BID 05/25/17 Breakfast Regular Diet [DIET] - Assessment Assessment:: 27 year old G1 now P1 40 4/7 weeks delivered with second degree tear with repair, other other complications Labs HGB 11.1, PLT 354, HIV neg, ABO O pos, Rubella immune, GBS neg, Hep B neg 05/26/17 Feels ok, bottom sore bleeding has lighten up HGB 9.4 this morning repair intact and no hematomas fine - Plan Plan:: 05/25/17 40 4/7 weeks gestation g1 SROM at home Baseline FHT 155 Cat one strip CE 3/-2, leaking Not uncomfortable yet, wants to walk, and be in tub for now. Plan for vaginal delivery later. 05-25-17 Routine cares ice to bottom and stool softeners CBC in am Support 24-48 hour stay 05/26/17 Routine cares up and about today, sitz bath support ice to bottom
[2017-05-26] MEDS: Docusate Sodium 100 MG Cap PO SCH ×2 (09:20→21:43)
--- NOTE | 2017-05-26 11:46 | PCM.HP ---
H&P History of Present Illness - General Admit Problem/Dx: Patient Status Order with Admit Dx/Problem 05/25/17 11:21 Patient Status [ADT] Routine Admission Diagnosis/Problem Admission Diagnosis/Problem - planned Abdominal Pain Score (Numeric/FACES): 4 - Related Data Allergies/Adverse Reactions: Allergies Allergy/AdvReac Type Severity Reaction Status Date / Time doxycycline Allergy Severe Anaphylactic Verified 12/15/14 15:48 Shock Home Medications: Home Meds Ferrous Sulfate 325 mg PO BID 05/25/17 [History] Vit W-Ca,Fe,FA(<1 mg) [ Vitamins] 1 each PO DAILY 05/25/17 [ History] Past Medical History Other Cardiovascular History: Raynaud's disease Gastrointestinal History: Reports: Inflammatory Bowel Disease [employer] History: Reports: Hematologic History: Reports: Other (See Below) Other Hematologic History: Raynaud's disease Dermatologic History: Reports: Urticaria, Other (See Below) Other Dermatologic History: acne; Raynaud's disease - Past Surgical History GI Surgical History: Reports: Appendectomy, Cholecystectomy, Hernia Repair/Other Social & Family History - Tobacco Use Smoking Status *Q: Never Smoker Second Hand Smoke Exposure: No - Caffeine Use Caffeine Use: Reports: None - Alcohol Use Days Per Week of Alcohol Use: 0 Number of Drinks Per Day: 2 Total Drinks Per Week: 0 - Recreational Drug Use Recreational Drug Use: No H&P Review of Systems - Review of Systems: General: Reports: No Symptoms HEENT: Reports: No Symptoms Pulmonary: Reports: No Symptoms Cardiovascular: Reports: No Symptoms Gastrointestinal: Reports: No Symptoms Genitourinary: Reports: No Symptoms Musculoskeletal: Reports: No Symptoms Skin: Reports: No Symptoms Psychiatric: Reports: No Symptoms Neurological: Reports: No Symptoms Hematologic/Lymphatic: Reports: No Symptoms Immunologic: Reports: No Symptoms Exam - Vital Signs Vital Signs: Last Vital Signs Temp 97.0 F 05/26/17 07:25 Pulse 90 05/26/17 03:11 Resp 18 05/26/17 07:25 BP 103/57 L 05/26/17 07:25 Pulse Ox 98 05/26/17 07:25 Weight: 190 lb - Exam General: Alert, Oriented, 4 HEENT: PERRLA, Hearing Intact, Mucosa Moist & [place], Nares Patent, Normal Nasal Septum, Posterior Pharynx Clear, Conjunctiva Clear, EOMI, EACs Clear, TMs Clear Neck: Supple, Trachea Midline, 2 Lungs: Clear to Auscultation, Normal Respiratory Effort Cardiovascular: Regular Rate, Regular Rhythm GI/Abdominal Exam: Normal Bowel Sounds, Soft, Non-Tender, No Organomegaly, No Distention, No Abnormal Bruit, No Mass, Pelvis Stable (Female) Exam: Normal External Exam, Normal Speculum Exam, Normal Bimanual Exam Rectal (Female) Exam: Normal Exam, Normal Rectal Tone Back Exam: Normal Inspection, Full Range of Motion, NT Extremities: Normal Inspection, Normal Range of Motion, Non-Tender, No Pedal Edema, Normal Capillary Refill Skin: Warm, Dry, Intact Neurological: Cranial Nerves Intact, Reflexes Equal Bilateral Neuro Extensive - Mental Status: Alert, Oriented x3, Normal Mood/Affect, Normal Cognition Neuro Extensive - Motor, Sensory, Reflexes: CN II-XII Intact, Normal Gait, Normal Reflexes Psychiatric: Alert, Normal Affect, Normal Mood - Patient Data Lab Results Last 24 hrs: Laboratory Results - last 24 hr 05/25/17 05/25/17 05/26/17 Range/Units 10:05 10:05 05:43 WBC 20.4 H (4.5-11.0) K/uL RBC 3.21 L (3.30-5.50) M/uL Hgb 9.4 L (12.0-15.0) g/dL Hct 29.0 L (36.0-48.0) % MCV 90 (80-98) fL MCH 29 (27-31) pg MCHC 32 (32-36) % Plt Count 317 (150-400) K/uL Neut % (Auto) 83 H (36-66) % Lymph % (Auto) 11 L (24-44) % [place] % (Auto) 6 (2-6) % Eos % (Auto) 1 L (2-4) % Baso % (Auto) 0 (0-1) % Urine Color Yellow Urine Appearance Cloudy Urine pH 7.0 (4.5-8.0) Ur Specific [place] 1.005 L (1.008-1.030) Urine Protein Negative (NEGATIVE) mg/dL Urine Glucose (UA) Normal (NEGATIVE) mg/dL Urine Ketones Negative (NEGATIVE) mg/dL Urine Occult Blood Large (NEGATIVE) Urine Nitrite Negative (NEGATIVE) Urine Bilirubin Negative (NEGATIVE) Urine Urobilinogen Normal (NORMAL) mg/dL Ur Leukocyte Esterase Large (NEGATIVE) Urine RBC 75-100 H (0-5) Urine WBC 75-100 H (0-5) Ur Epithelial Cells Moderate Amorphous Sediment Few Urine Bacteria Few Urine Mucus Numerous Urine Opiates Screen Negative (NEGATIVE) Ur Oxycodone Screen Negative (NEGATIVE) Urine Methadone Screen Negative (NEGATIVE) Ur Propoxyphene Screen Negative (NEGATIVE) Ur Barbiturates Screen Negative (NEGATIVE) Ur Tricyclics Screen Negative (NEGATIVE) Ur Phencyclidine Scrn Negative (NEGATIVE) Ur Amphetamine Screen Negative (NEGATIVE) U Methamphetamines Scrn Negative (NEGATIVE) Urine MDMA Screen Negative (NEGATIVE) U Benzodiazepines Scrn Negative (NEGATIVE) U Cocaine Metab Screen Negative (NEGATIVE) U Marijuana (THC) Screen Negative (NEGATIVE) Result Diagrams: 05/26/17 05:43 *Q Meaningful Use (ADM) - VTE *Q VTE Criteria *Q: - Stroke *Q Stroke Criteria *Q: - AMI *Q AMI Criteria *Q: - Problem List (1) Vaginal delivery SNOMED Code(s): 650642098 ICD Code: O80 - ENCOUNTER FOR FULL-TERM UNCOMPLICATED DELIVERY Status: Acute Current Visit: Yes Problem List Initiated/Reviewed/Updated: Yes Orders Last 24hrs: Active Orders 24 hr Category Date Time Status Patient Status [ADT] Routine ADT 05/25/17 20:32 Active Antiembolic Devices [RC] .Routine Care 05/25/17 11:23 Active May Shower [RC] ASDIRECTED Care 05/25/17 11:20 Active Notify Provider Vital Signs [RC] PRN Care 05/25/17 11:20 Active Notify Provider [RC] PRN Care 05/25/17 11:21 Active Up ad Shiela [RC] ASDIRECTED Care 05/25/17 11:20 Active VTE/DVT Education [RC] Click to Edit Care 05/25/17 11:23 Active Vital Signs [RC] PER UNIT ROUTINE Care 05/25/17 11:21 Active Acetaminophen [Tylenol] Med 05/25/17 11:20 Active 650 mg PO Q4H PRN Benzocaine [Krqm-G-Onqtcjo 20% [place]] Med 05/25/17 20:32 Active See Dose Instructions TOP Q4H PRN Docusate Sodium [Colace] Med 05/25/17 21:00 Active 100 mg PO BID Ibuprofen [Motrin] Med 05/25/17 20:32 Active 600 mg PO Q6H PRN Lanolin [Lansinoh HPA] Med 05/25/17 20:32 Active 1 gm TOP ASDIRECTED PRN Ondansetron [Zofran ODT] Med 05/25/17 11:20 Active 4 mg PO Q4H PRN Sodium Chloride 0.9% [Saline Flush] Med 05/25/17 11:20 Active 10 ml FLUSH ASDIRECTED PRN Witch Yamilet [Tucks] Med 05/25/17 20:32 Active 1 pad TOP ASDIRECTED PRN Assess Lochia [WOMSER] Per Unit Routine Oth 05/25/17 20:32 Ordered Assess Uterine Involution [WOMSER] Per Unit Routine Oth 05/25/17 20:32 Ordered DVT/VTE Prophylaxis Reflex [OM.PC] Routine Oth 05/25/17 11:20 Ordered Ice Therapy [OM.PC] Per Unit Routine Oth 05/25/17 20:34 Ordered Perineal Care [OM.PC] Per Unit Routine Oth 05/25/17 20:34 Ordered Peripheral IV Discontinue [OM.PC] Routine Oth 05/25/17 20:34 Ordered Saline Lock Insert [OM.PC] Routine Oth 05/25/17 11:21 Ordered Sitz Bath [OM.PC] Per Unit Routine Oth 05/25/17 20:34 Ordered Resuscitation Status Routine Resus Stat 05/25/17 11:20 Ordered Medication Orders Acetaminophen (Tylenol) 650 mg PO Q4H PRN PRN Reason: Pain (Mild 1-3) and fever Last Admin: 05/26/17 07:30 Dose: 650 mg Admin: 05/26/17 03:16 Dose: 650 mg Admin: 05/25/17 23:03 Dose: 650 mg Benzocaine (Kqsi-J-Wfkfevh 20% [place]) 0 gm TOP Q4H PRN PRN Reason: Perineal Comfort Measure Docusate Sodium (Colace) 100 mg PO BID BHUPENDRA Last Admin: 05/26/17 09:20 Dose: 100 mg Admin: 05/25/17 23:04 Dose: 100 mg Emollient Ointment (Lansinoh Hpa) 1 gm TOP ASDIRECTED PRN PRN Reason: Sore Nipples Ibuprofen (Motrin) 600 mg PO Q6H PRN PRN Reason: mild pain or fever Last Admin: 05/26/17 08:22 Dose: 600 mg Admin: 05/26/17 02:20 Dose: 600 mg Admin: 05/25/17 20:40 Dose: 600 mg Ondansetron HCl (Zofran Odt) 4 mg PO Q4H PRN PRN Reason: Nausea/Vomiting Last Admin: 05/25/17 17:12 Dose: 4 mg Sodium Chloride (Saline Flush) 10 ml FLUSH ASDIRECTED PRN PRN Reason: Keep Vein Open Saray Woodard (Tucks) 1 pad TOP ASDIRECTED PRN PRN Reason: Hemorrhoids Assessment/Plan Comment:: 05/25/17 40 4/7 weeks gestation g1 SROM at home Baseline FHT 155 Cat one strip CE /-2, leaking Not uncomfortable yet, wants to walk, and be in tub for now. Plan for vaginal delivery later. 05-25-17 Routine cares ice to bottom and stool softeners CBC in am Support 24-48 hour stay 05/26/17 Routine cares up and about today, sitz bath support ice to bottom
[2017-05-26] MEDS ORDERED: Acetaminophen 325 MG Tab, 50 Tab Bulk Bottle PO PRN (19:53)
[2017-05-26] MEDS ORDERED: Ibuprofen 200 MG Tab, 24 Tab Bulk Bottle PO PRN (19:53)
[2017-05-27 08:43] VITALS: BP 112/59
[2017-05-27] MEDS: Docusate Sodium 100 MG Cap PO SCH (08:43)
--- NOTE | 2017-05-27 08:50 | PCM.PNPP ---
- General Info Date of Service: 05/27/17 (PPD 2 D/C) Functional Status: Reports: Pain Controlled - Review of Systems General: Reports: No Symptoms HEENT: Reports: No Symptoms Pulmonary: Reports: No Symptoms Cardiovascular: Reports: No Symptoms Gastrointestinal: Reports: No Symptoms Genitourinary: Reports: No Symptoms Musculoskeletal: Reports: No Symptoms Skin: Reports: No Symptoms Neurological: Reports: No Symptoms Psychiatric: Reports: No Symptoms - General Info Date of Service: 05/27/17 - Patient Data Vital Signs - Most Recent: Last Vital Signs Temp 97.5 F 05/27/17 08:41 Pulse 81 05/27/17 08:41 Resp 18 05/27/17 08:41 BP 112/59 L 05/27/17 08:41 Pulse Ox 98 05/27/17 08:41 Weight - Most Recent: 190 lb Med Orders - Current: Current Medications Acetaminophen (Tylenol Bulk Bottle) 650 mg PO Q4H PRN PRN Reason: Pain Last Admin: 05/26/17 21:46 Dose: 1 bottle Benzocaine (Pfhx-N-Lbkatdl 20% [place]) 0 gm TOP Q4H PRN PRN Reason: Perineal Comfort Measure Last Admin: 05/26/17 21:44 Dose: 1 spray Docusate Sodium (Colace) 100 mg PO BID BHUPENDRA Last Admin: 05/27/17 08:43 Dose: 100 mg Emollient Ointment (Lansinoh Hpa) 1 gm TOP ASDIRECTED PRN PRN Reason: Sore Nipples Last Admin: 05/26/17 21:45 Dose: 1 applic Ibuprofen (Motrin Bulk Bottle) 600 mg PO Q6H PRN PRN Reason: Pain Last Admin: 05/26/17 21:46 Dose: 1 bottle Ondansetron HCl (Zofran Odt) 4 mg PO Q4H PRN PRN Reason: Nausea/Vomiting Last Admin: 05/25/17 17:12 Dose: 4 mg Sodium Chloride (Saline Flush) 10 ml FLUSH ASDIRECTED PRN PRN Reason: Keep Vein Open Witch Yamilet (Tucks) 1 pad TOP ASDIRECTED PRN PRN Reason: Hemorrhoids Last Admin: 05/26/17 21:44 Dose: 1 pad Discontinued Medications Acetaminophen (Tylenol) 650 mg PO Q4H PRN PRN Reason: Pain (Mild 1-3) and fever Last Admin: 05/26/17 16:10 Dose: 650 mg Ephedrine Sulfate (Ephedrine Sulfate) Confirm Administered Dose 50 mg .ROUTE .STK-MED ONE Stop: 05/25/17 17:23 Last Admin: 05/25/17 23:04 Dose: Not Given Ephedrine Sulfate (Ephedrine Sulfate) 5 - 10 mg IVPUSH ASDIRECTED PRN PRN Reason: IF SYSTOLIC BP LESS THAN 100 Fentanyl (Sublimaze) 100 mcg IVPUSH Q1H PRN PRN Reason: Pain (moderate 4-6) Oxytocin/Sodium Chloride (Pitocin In Ns 20 Units/1,000 Ml) 20 unit in 1,000 mls @ 6 mls/hr IV TITRATE BHUPENDRA; 2 MUNITS/MIN PRN Reason: Protocol Last Titration: 05/25/17 20:20 Dose: 125 mls/hr Lactated Ringer's (Ringers, Lactated) 1,000 mls @ 125 mls/hr IV ASDIRECTED BHUPENDRA Last Admin: 05/25/17 17:13 Dose: 125 mls/hr Ropivacaine (Naropin 0.2%) Confirm Administered Dose 100 mls @ as directed .ROUTE .STK-MED ONE Stop: 05/25/17 17:37 Ropivacaine (Naropin 0.2%) 100 mls @ 12 mls/hr EPIDUR ASDIRECTED BHUPENDRA Ibuprofen (Motrin) 600 mg PO Q6H PRN PRN Reason: mild pain or fever Last Admin: 05/26/17 14:18 Dose: 600 mg Ibuprofen (Motrin) Confirm Administered Dose 600 mg .ROUTE .STK-MED ONE Stop: 05/25/17 20:38 Last Admin: 05/25/17 23:05 Dose: Not Given Lidocaine HCl (Xylocaine 1%) Confirm Administered Dose 100 ml .ROUTE .STK-MED ONE Stop: 05/25/17 18:47 Last Admin: 05/25/17 23:05 Dose: Not Given Naloxone HCl (Narcan) 0.1 mg IVPUSH Q5M PRN PRN Reason: IF RESP RATE LESS THAN 6 Oxytocin (Pitocin) Confirm Administered Dose 10 unit .ROUTE .STK-MED ONE Stop: 05/25/17 18:47 Last Admin: 05/25/17 23:05 Dose: Not Given - Interaction Disposition, : [place] in Room with Family Interaction: Other (see below) (baby with her in crib) Feeding: Breastfed ; Nursed Well Support Person: - Recovery Exam Fundal Tone: [place] with Massage Fundal Level: 1 Fingerbreadths Below Umbilicus Fundal Placement: Midline Lochia Amount: Small Lochia Color: Rubra/Red Perineum Description: Intact, Minimal Bruising/Swelling, Other (see below) ( Repair without swelling and looks good) Episiotomy/Laceration: Approximated Bladder Status: Voiding Urinary Elimination: Voided - Exam General: Alert, Oriented HEENT: Pupils Equal Neck: Supple Lungs: Clear to Auscultation, Normal Respiratory Effort Cardiovascular: Regular Rate, Regular Rhythm GI/Abdominal Exam: Normal Bowel Sounds, Soft, Non-Tender, No Organomegaly, No Distention, No Abnormal Bruit, No Mass, Pelvis Stable Extremities: Normal Inspection, Normal Range of Motion, Non-Tender, No Pedal Edema, Normal Capillary Refill Skin: Warm, Dry, Intact Wound/Incisions: Healing Well Neurological: No New Focal Deficit Psy/Mental Status: Alert, Normal Affect, Normal Mood - Problem List & Annotations (1) SROM (spontaneous rupture of membranes) SNOMED Code(s): 202675125 Code(s): RPN3235 - Status: Acute Current Visit: Yes (2) SNOMED Code(s): 61427762 Code(s): Z34.90 - ENCNTR FOR SUPRVSN OF NORMAL , UNSP, UNSP TRIMESTER Status: Acute Current Visit: Yes Qualifiers: Weeks of gestation: 40 weeks Qualified Code(s): Z3A.40 - 40 weeks gestation of (3) Vaginal delivery SNOMED Code(s): 128617654 Code(s): O80 - ENCOUNTER FOR FULL-TERM UNCOMPLICATED DELIVERY Status: Acute Current Visit: Yes (4) Vaginal tear resulting from childbirth SNOMED Code(s): 726567336 Code(s): O71.4 - OBSTETRIC HIGH VAGINAL LACERATION ALONE Status: Acute Current Visit: Yes - Problem List Review Problem List Initiated/Reviewed/Updated: Yes - Assessment Assessment:: 27 year old G1 now P1 40 4/7 weeks delivered with second degree tear with repair, other other complications Labs HGB 11.1, PLT 354, HIV neg, ABO O pos, Rubella immune, GBS neg, Hep B neg 05/26/17 Feels ok, bottom sore bleeding has lighten up HGB 9.4 this morning repair intact and no hematomas fine 05/27/17 Doing well Happy Bleeding light voiding no problem, no BM yet on stool softener Bottom not painful No breast pain or difficulties with Ready for discharge - Plan Plan:: 05/27/17 Home today See Maryan in 6 weeks for a post visit. Call with questions or problems Post delivery education done on breast care, bottom care mood and diet
== END 2017-05-27 12:26 | disposition home or self-care (01) | DRG 775 ==
LOC: JP.OBCHECK 09:57 → JP.OB 10:29 → OBSVTOIN 19:41 → JP.MS 21:00
PROVIDERS: ADMIT Nurse Practitioner Family; ATTEND Nurse Practitioner Family
PROC: 10E0XZZ Delivery of Products of Conception, External Approach (ICD-10-PCS; principal; 2017-05-25)
PROC: 0HQ9XZZ Repair Perineum Skin, External Approach (ICD-10-PCS; 2017-05-25)
PROC: 0UQMXZZ Repair Vulva, External Approach (ICD-10-PCS; 2017-05-25)
PROC: 00HU33Z Insertion of Infusion Device into Spinal Canal, Percutaneous Approach (ICD-10-PCS; 2017-05-25)
DX: O71.5 Other obstetric injury to pelvic organs (principal); O70.0 First degree perineal laceration during delivery; Z3A.40 40 weeks gestation of pregnancy; Z37.0 Single live birth
CPT/HCPCS: 36415; 59409; 80305; 81001; 84112; 85025; 85027; A9270-GY; J2590; J2795; J7120

== ENCOUNTER 2022-06-26 07:00 | Inpatient (IN) | payer MEDICAID ==
[2022-06-26] MEDS ORDERED: Sodium Chloride 0.9% 10 ML Syringe FLUSH PRN ×4 (07:15→18:18)
[2022-06-26 07:56] LABS: ESTIMATED GFR 122 mL/min (>60)
[2022-06-26] MEDS ORDERED: Prenatal Multivitamin with Calcium/Folic Acid/Iron Tab PO SCH (09:00)
[2022-06-26] MEDS: Misoprostol 200 MCG Tab PO PRN ×3 (09:32→11:48)
[2022-06-26] MEDS ORDERED: Terbutaline 1 MG/ML SDV SUBCUT PRN (10:20)
[2022-06-26] MEDS ORDERED: Ondansetron 4 MG/2 ML SDV IV PRN (11:08)
[2022-06-26] MEDS ORDERED: Lidocaine 1% 50 ML MDV INJECT PRN (11:08)
[2022-06-26] MEDS ORDERED: Famotidine 20 MG/2 ML SDV IV PRN (11:08)
[2022-06-26] MEDS ORDERED: Carboprost Tromethamine 250 MCG/1 ML Amp IM ONE (11:08)
[2022-06-26] MEDS ORDERED: Carboprost Tromethamine 250 MCG/1 ML Amp IM PRN (11:15)
[2022-06-26] MEDS ORDERED: fentaNYL 50 MCG/ML SDV IVPUSH PRN (11:26)
[2022-06-26] MEDS ORDERED: diphenhydrAMINE 50 MG/ML SDV IVPUSH PRN ×2 (17:14)
[2022-06-26] MEDS ORDERED: ePHEDrine 50 MG/ML SDV IVPUSH PRN (17:14)
[2022-06-26] MEDS ORDERED: Naloxone 0.4 MG/ML SDV IVPUSH PRN (17:14)
[2022-06-26] MEDS ORDERED: Ropivacaine 100 ML ONE (17:30)
[2022-06-26] MEDS ORDERED: Lactated Ringers 1,000 ML IV SCH (18:00)
[2022-06-26] MEDS ORDERED: Lactated Ringers 1,000 ML IV ONE (18:00)
[2022-06-26] MEDS ORDERED: Ropivacaine 100 ML EPIDUR SCH (18:00)
[2022-06-26] MEDS ORDERED: Lactated Ringers 500 ML IV ONE (20:30)
[2022-06-26] MEDS: Prenatal Multivitamin with Calcium/Folic Acid/Iron Tab PO SCH (21:18)
[2022-06-26] MEDS ORDERED: Benzocaine 20% Top Spray 56 GM Bottle TOP PRN (22:19)
[2022-06-26] MEDS ORDERED: Witch Hazel Medicated Pads 100/Jar TOP PRN (22:19)
[2022-06-26] MEDS ORDERED: Docusate Sodium 100 MG Cap PO PRN (22:19)
[2022-06-26] MEDS ORDERED: Lanolin 100% Cream 40 GM Tube TOP PRN (22:19)
[2022-06-26] MEDS ORDERED: Famotidine 20 MG Tab PO PRN (22:19)
[2022-06-27] MEDS: Acetaminophen 325 MG Tab PO PRN ×2 (01:35→05:44)
[2022-06-27] MEDS: Ibuprofen 600 MG Tab PO PRN ×2 (01:35→08:20)
[2022-06-27] MEDS: Ferrous Sulfate 325 MG Tab PO SCH (09:08)
[2022-06-27] MEDS ORDERED: Acetaminophen 325 MG Tab, 50 Tab Bulk Bottle PO PRN (10:07)
[2022-06-27] MEDS ORDERED: Benzocaine 20% Top Spray 56 GM Bottle TOP PRN (10:07)
[2022-06-27] MEDS ORDERED: Ibuprofen 200 MG Tab, 24 Tab Bulk Bottle PO PRN (10:07)
[2022-06-28] MEDS: Prenatal Multivitamin with Calcium/Folic Acid/Iron Tab PO SCH (06:04)
[2022-06-28 07:44] VITALS: BP 119/76; PULSE 58
[2022-06-28] MEDS: Ferrous Sulfate 325 MG Tab PO SCH (08:52)
[2022-06-28] MEDS ORDERED: Non-Formulary Medication 1 Each (Ondansetron [Zofran Odt] 4 MG Tab.Dis) PO PRN (10:05)
[2022-06-28] MEDS ORDERED: Ondansetron 4 MG Tab.DIS PO PRN (10:09)
== END 2022-06-28 12:23 | disposition home health service (06) | DRG 805 ==
LOC: JP.OB 07:00 → UNDOADMOB 07:00 → JP.MS 07:00 → UNDOADMOB 07:13 → JP.OB 07:13 → OBSVTOIN 21:50 → JP.MS 21:50
PROVIDERS: ADMIT Family Medicine; ATTEND Family Medicine
PROC: 10E0XZZ Delivery of Products of Conception, External Approach (ICD-10-PCS; principal; 2022-06-26)
PROC: 10907ZC Drainage of Amniotic Fluid, Therapeutic from Products of Conception, Via Natural or Artificial Opening (ICD-10-PCS; 2022-06-26)
PROC: 0HQ9XZZ Repair Perineum Skin, External Approach (ICD-10-PCS; 2022-06-26)
PROC: 3E0R3BZ Introduction of Anesthetic Agent into Spinal Canal, Percutaneous Approach (ICD-10-PCS; 2022-06-26)
PROC: 00HU33Z Insertion of Infusion Device into Spinal Canal, Percutaneous Approach (ICD-10-PCS; 2022-06-26)
DX: O14.94 Unspecified pre-eclampsia, complicating childbirth (principal); U07.1 COVID-19; Z37.0 Single live birth; O98.52 Other viral diseases complicating childbirth; Z3A.37 37 weeks gestation of pregnancy; O99.62 Diseases of the digestive system complicating childbirth; K21.9 Gastro-esophageal reflux disease without esophagitis; O69.81X0 Labor and delivery complicated by cord around neck, without compression, not applicable or unspecified; O70.0 First degree perineal laceration during delivery; O71.82 Other specified trauma to perineum and vulva
CPT/HCPCS: 36415; 80053; 81001; 85025; A9270-GY; J2405; J2590; J2795; J7120; U0002

== ENCOUNTER 2022-10-29 11:08 | Emergency (ER) | payer MEDICAID ==
[2022-10-29 11:23] VITALS: BP 125/77; PULSE 79
== END 2022-10-29 13:41 | disposition home or self-care (01) ==
LOC: JP.ED 11:08
DX: N92.1 Excessive and frequent menstruation with irregular cycle (principal); Z88.8 Allergy status to other drugs, medicaments and biological substances; Z90.49 Acquired absence of other specified parts of digestive tract
CPT/HCPCS: 36415; 80076; 81001; 84703; 85025; 85610; 85730; 99284

== ENCOUNTER 2025-06-10 16:04 | Inpatient (IN) | payer MEDICAID ==
[2025-06-10] MEDS ORDERED: Sodium Chloride 0.9% 10 ML Syringe FLUSH PRN (16:11)
[2025-06-10] MEDS ORDERED: Ondansetron 4 MG/2 ML SDV IV PRN (16:11)
[2025-06-10] MEDS ORDERED: Naloxone 0.4 MG/ML SDV IVPUSH PRN (16:15)
[2025-06-10] MEDS: Piperacillin/Tazobactam/Dext 4.5 GM in Premix Bag 1 BAG IV ONE (17:53)
[2025-06-10] MEDS: Piperacillin/Tazobactam/Dext 4.5 GM in Premix Bag 1 BAG IV SCH (21:10)
[2025-06-11] MEDS: Acetaminophen/Caffeine 500-65 MG Tab PO PRN (02:45)
[2025-06-11 06:23] LABS: PLATELET COUNT,PLT 392.0 K/uL (130-375); RED BLOOD CELL COUNT 3.96 M/uL (3.77-5.24); WHITE BLOOD CELL COUNT,WBC 10.5 K/uL (3.2-11.0)
[2025-06-11 06:36] LABS: BLOOD UREA NITROGEN,BUN 8.0 mg/dL (7-18); CARBON DIOXIDE,CO2 24.0 mmol/L (21-32); CHLORIDE,CL 106.0 mmol/L (100-108); CREATININE 0.7 mg/dL (0.6-1.0); EST CRCL DRUG DOSING (CG) 92.79 mL/min; ESTIMATED GFR 116.0 mL/min (>60); GLUCOSE RANDOM 92.0 mg/dL (74-106); POTASSIUM,K 3.8 mmol/L (3.6-5.2); SODIUM,NA 141.0 mmol/L (140-148)
[2025-06-11] MEDS ORDERED: Sodium Phosphate,Monobasic/Sodium Phosphate,Dibasic Enema 133 ML Bottle RECTAL PRN (14:30)
[2025-06-13 12:05] VITALS: BP 122/73; PULSE 66
== END 2025-06-13 13:43 | disposition home or self-care (01) | DRG 392 ==
LOC: JP.MS 16:04
PROVIDERS: ADMIT Hospitalist; ATTEND Internal Medicine
DX: K57.20 Diverticulitis of large intestine with perforation and abscess without bleeding (principal); K59.00 Constipation, unspecified; D72.829 Elevated white blood cell count, unspecified; E66.01 Morbid (severe) obesity due to excess calories; E11.9 Type 2 diabetes mellitus without complications; D64.9 Anemia, unspecified; T18.9XXA Foreign body of alimentary tract, part unspecified, initial encounter; K21.9 Gastro-esophageal reflux disease without esophagitis; E61.1 Iron deficiency; Z90.49 Acquired absence of other specified parts of digestive tract; Z68.32 Body mass index [BMI] 32.0-32.9, adult; Z88.1 Allergy status to other antibiotic agents; Z98.890 Other specified postprocedural states
CPT/HCPCS: 36415; 80048; 83735; 85027; 99223; 99232; 99238; A9270-GY; J2543; J7030